=== PATIENT | male | born 1980 | race Caucasian/White ===

== ENCOUNTER → 2019-10-19 | Outpatient (CLI) | payer OTHER ==
[2014-07-10 14:35] VITALS: BP 136/84
--- NOTE | 2019-10-19 15:07 | RAD ---
Examination: FOOT RIGHT 3V History: Fall, pain at the lateral aspect Comparison/Correlation: None Findings: Total of 3 images of the right foot were obtained. Joint spaces are within normal limits. No acute displaced fracture or bony destructive findings. Nonunion distal fibular fracture is evident. Deformity of the distal tibia is notable preserved same previous trauma. Lucency involving the distal tibial diametaphyseal region is noted expansile appearance. Multiple lucencies involving the distal tibia corresponding to previous screw or pin placement noted.. Impression: No evidence of acute fracture. Deformity of distal tibia and fibula. These are presumed posttraumatic and postoperative. Correlate with previous exams available. In particular, expansile appearance of the distal tibial metaphysis is present although may relate to trauma history. No cortical destruction is seen at this site. Electronically signed by: Ponce Sevilla MD (10/19/2019 3:05 PM) [facility]
== END | disposition home or self-care (01) ==
LOC: DXRAD 14:00
PROVIDERS: ATTEND Physician Assistant Medical
DX: S82.831K Other fracture of upper and lower end of right fibula, subsequent encounter for closed fracture with nonunion (principal); X58.XXXD Exposure to other specified factors, subsequent encounter
CPT/HCPCS: 73630

== ENCOUNTER 2020-08-19 19:53 | Emergency (ER) | payer OTHER ==
[~2020-08-19] VITALS: Ht 188 cm; Wt 100.0 kg
[2020-08-19] MEDS ORDERED: ACETAMINOPHEN 325 MG TABLET PO ONE (20:30)
--- NOTE | 2020-08-19 20:33 | PHYS DOC ---
Past History Past Medical History: No Pertinent History Past Surgical History: Other Additional Past Surgical Histo: right ankle surgery x 7, back surgery Alcohol Use: None Drug Use: None Adult General Chief Complaint Chief Complaint: FOOT INJURY PAIN HPI HPI Patient is a 40-year-old male presenting with right lower extremity problem. Patient has history of traumatic fall from roof and numerous orthopedic surgeries to his right lower extremity. He reports having x7 surgeries to his tibia/fibula and ankle region which was complicated with infection. He cites being on long-term antibiotic and having PICC line placed approximately 1 year ago for extended IV antibiotic use at home, he is unsure what bacteria was involved, he is unsure if he has ever suffered from MRSA. Nonetheless, patient was told by prior orthopedic surgeon that if redness/other signs of cellulitis occur to take previously prescribed linezolid 600 mg twice daily and report to nearest ER for evaluation. Patient reports working per usual today and wearing typical work boots when he discovered approximately 2 x 3 well demarcated redness to the ventral portion of his right foot. Over the course of 3 hours, redness, erythema, in pain increased prompting him to take 600 mg linezolid p.o. and present to our ER for evaluation. Patient denies any prodromal symptoms, has not been sick or symptomatic prior to noticing redness on ventral portion of the foot this evening. No recent trauma, no changes in medication, no obvious inoculation or other inciting event. No fever, no COVID-19 contact, no changes in motor and/or sensory function. Review of Systems Review of Systems Fourteen body systems of review of systems have been reviewed. See HPI for pertinent positives and negative responses, other burris all other systems are negative, non-pertinent or non-contributory Allergies Allergies Allergies Coded Allergies Type Severity Reaction Last Updated Verified No Known Drug Allergies 07/10/14 No Physical Exam Physical Exam Constitutional: Well developed, well nourished, no acute distress, non-toxic appearance. HENT: Normocephalic, atraumatic, bilateral external ears normal, oropharynx moist, no oral exudates, nose normal. Eyes: PERRLA, EOMI, conjunctiva normal, no discharge. Neck: Normal range of motion, no tenderness, supple, no stridor. Cardiovascular: Heart rate regular, sinus rhythm, no murmurs rubs or gallops Lungs & Thorax: Bilateral breath sounds clear to auscultation Abdomen: Bowel sounds normal, soft, no tenderness, no masses, no pulsatile masses. Nonsurgical abdomen, no peritoneal signs Skin: Warm, dry, no rash. Well demarcated area concerning for contact dermatitis versus cellulitis of ventral portion of right foot approximately 4 x 6 cm in size, mild involvement to inferior portion of right lateral malleolus. No crepitus, fluctuance, mobile masses concerning for abscess or fluid collection, no elevation in skin or other tactile findings Back: No tenderness, no CVA tenderness. Extremities: No cyanosis, no clubbing, no edema. Range of motion diminished in all planes of right lower extremity which is consistent status post numerous orthopedic surgeries of right lower extremity. Tenderness over skin findings in question noted above without any visual and/or palpable abnormalities Neurologic: Alert and oriented X 3, grossly normal motor & sensory function, no focal deficits noted. Psychologic: Affect normal, judgement normal, anxious mood Current Patient Data Vital Signs Vital Signs Date Time Temp Pulse Resp B/P (MAP) Pulse Ox O2 Delivery O2 Flow Rate FiO2 08/19/20 20:00 98.4 77 16 140/81 (100) 97 Lab Results Laboratory Tests Test 08/19/20 20:25 White Blood Count 8.5 x10^3/uL (4.0-11.0) Red Blood Count 4.90 x10^6/uL (4.30-5.70) Hemoglobin 15.2 g/dL (13.0-17.5) Hematocrit 46.0 % (39.0-53.0) Mean Corpuscular Volume 94 fL (79-100) Mean Corpuscular Hemoglobin 31 pg (25-35) Mean Corpuscular Hemoglobin Concent 33 g/dL (31-37) Red Cell Distribution Width 12.8 % (11.5-14.5) Platelet Count 256 x10^3/uL (140-400) Neutrophils (%) (Auto) 58 % (31-73) Lymphocytes (%) (Auto) 31 % (24-48) Monocytes (%) (Auto) 8 % (0-9) Eosinophils (%) (Auto) 1 % (0-3) Basophils (%) (Auto) 1 % (0-3) Neutrophils # (Auto) 5.0 x10^3uL (1.8-7.7) Lymphocytes # (Auto) 2.7 x10^3/uL (1.0-4.8) Monocytes # (Auto) 0.7 x10^3/uL (0.0-1.1) Eosinophils # (Auto) 0.1 x10^3/uL (0.0-0.7) Basophils # (Auto) 0.1 x10^3/uL (0.0-0.2) Sodium Level 138 mmol/L (136-145) Potassium Level 3.9 mmol/L (3.5-5.1) Chloride Level 103 mmol/L (98-107) Carbon Dioxide Level 26 mmol/L (21-32) Anion Gap 9 (6-14) Blood Urea Nitrogen 16 mg/dL (8-26) Creatinine 1.1 mg/dL (0.7-1.3) Estimated GFR (Cockcroft-Gault) 74.9 BUN/Creatinine Ratio 15 (6-20) Glucose Level 84 mg/dL (70-99) Lactic Acid Level 1.1 mmol/L (0.4-2.0) Calcium Level 9.2 mg/dL (8.5-10.1) Total Bilirubin 0.3 mg/dL (0.2-1.0) Aspartate Amino Transf (AST/SGOT) 17 U/L (15-37) Alanine Aminotransferase (ALT/SGPT) 38 U/L (16-63) Alkaline Phosphatase 81 U/L (46-116) C-Reactive Protein 0.9 mg/L (0-3.3) Total Protein 7.9 g/dL (6.4-8.2) Albumin 4.2 g/dL (3.4-5.0) Albumin/Globulin Ratio 1.1 (1.0-1.7) EKG EKG [] Radiology/Procedures Radiology/Procedures PROCEDURE: FOOT RIGHT 3V Exam: Right ankle 3 views. Right foot 3 views INDICATION: Dorsal foot pain, rule out abscess TECHNIQUE: Frontal, lateral and oblique views of the right foot and right ankle Comparisons: Foot radiographs 10/19/2019 FINDINGS: Foot: Bone mineralization is normal. No acute or healed fractures. Soft tissues are unremarkable. Joint spaces are well-maintained. Ankle: Chronic fracture deformity at the distal tibia and fibula with arthrodesis at the tibiotalar joint. No acute fractures are identified. Soft tissues are unremarkable. IMPRESSION: 1. Chronic changes at the right ankle with arthrodesis of the tibiotalar joint. No acute fractures seen. 2. No acute osseous abnormality at the right foot. Electronically signed by: Adelina Amezcua MD (08/19/2020 8:58 PM) [facility] DICTATED AND SIGNED BY: ADELINA AMEZCUA MD DATE: 08/19/202057 Heart Score Risk Factors: Risk Factors: DM, Current or recent (<one month) smoker, HTN, HLP, family history of CAD, obesity. Risk Scores: Risk Factors: DM, Current or recent (<one month) smoker, HTN, HLP, family history of CAD, obesity. Course & Med Decision Making Course & Med Decision Making Pertinent Labs and Imaging studies reviewed. (See chart for details) I discussed most likely diagnosis of contact dermatitis versus process. 650 mg Tylenol administered in ER with improvement in pain. Throughout course of ER visit, patient's area of concern diminished in size and redness. Because of this, I discussed most likely diagnosis of contact dermatitis versus other transient and likely self-limiting process. With that said, patient is extremely high risk. He has history of numerous surgeries and likely osteomyelitis although patient is not entirely sure of his diagnosis. He reports having good access to primary care physician and orthopedic surgeon, he reports he would feel more comfortable if he continued taking the 600 mg twice daily linezolid until seen in outpatient setting by specialist, I am okay with this given patient's history of infectious pathology to right lower extremity and fact that I do not accurately know his entire past medical history. I advised patient to avoid potential new allergens such as soaps or new socks and change his work boots to his other pair temporarily to ensure symptomatic resolution. Area in question outlined with marker pending for review by primary care physician and specialist at outpatient follow-up. Strict return precautions discussed with good understanding by patient, all questions and concerns addressed prior to ER departure in improved condition Dragon Disclaimer Dragon Disclaimer This electronic medical record was generated, in whole or in part, using a voice recognition dictation system. Departure Departure: Impression: Primary Impression: Skin problem Disposition: 01 DC HOME SELF CARE/HOMELESS Condition: IMPROVED Referrals: SADIE MELTON (PCP) Additional Instructions: As discussed prior to ER departure, please call your primary care physician and orthopedic physician first thing Saturday morning to schedule outpatient follow-up regarding your right lower extremity skin condition As advised by your primary orthopedic and given your high risk for potential cellulitis and worsened complications, I would continue taking your linezolid 600 mg twice daily until further notice I would advise you to avoid work boots as much as possible and new allergens to skin area in question If any concerning signs or symptoms present prior to outpatient follow-up please do not hesitate to come back for repeat examination It was a pleasure to take care of you and I wish you a speedy recovery! AAKASH SHAY DO Aug 19, 2020 20:33
[2020-08-19 20:53] LABS: BASO # 0.1 x10^3/uL (0.0-0.2); BASO % 1 % (0-3); EOS # 0.1 x10^3/uL (0.0-0.7); EOS % 1 % (0-3); HEMOGLOBIN 15.2 g/dL (13.0-17.5); LYMPH # 2.7 x10^3/uL (1.0-4.8); LYMPH % 31 % (24-48); MEAN CORPUSCULAR HEMOGLOBIN 31 pg (25-35); MEAN CORPUSCULAR HGB CONC 33 g/dL (31-37); MEAN CORPUSCULAR VOLUME 94 fL (79-100); MONO # 0.7 x10^3/uL (0.0-1.1); MONO % 8 % (0-9); NEUT % 58 % (31-73); PLATELET COUNT 256 x10^3/uL (140-400); RED CELL DISTRIBUTION WIDTH 12.8 % (11.5-14.5); WHITE BLOOD COUNT 8.5 x10^3/uL (4.0-11.0)
[2020-08-19 20:57] LABS: CALCIUM 9.2 mg/dL (8.5-10.1); CREATININE 1.1 mg/dL (0.7-1.3); GFR 74.9; POTASSIUM 3.9 mmol/L (3.5-5.1)
--- NOTE | 2020-08-19 21:01 | RAD ---
Exam: Right ankle 3 views. Right foot 3 views INDICATION: Dorsal foot pain, rule out abscess TECHNIQUE: Frontal, lateral and oblique views of the right foot and right ankle Comparisons: Foot radiographs 10/19/2019 FINDINGS: Foot: Bone mineralization is normal. No acute or healed fractures. Soft tissues are unremarkable. Joint spaces are well-maintained. Ankle: Chronic fracture deformity at the distal tibia and fibula with arthrodesis at the tibiotalar joint. No acute fractures are identified. Soft tissues are unremarkable. IMPRESSION: 1. Chronic changes at the right ankle with arthrodesis of the tibiotalar joint. No acute fractures seen. 2. No acute osseous abnormality at the right foot. Electronically signed by: Melquiades Burden MD (08/19/2020 8:58 PM) [facility]
[2020-08-19 21:03] LABS: ALBUMIN 4.2 g/dL (3.4-5.0); ALBUMIN/GLOBULIN RATIO 1.1 (1.0-1.7); C REACTIVE PROTEIN 0.9 mg/L (0-3.3); TOTAL BILIRUBIN 0.3 mg/dL (0.2-1.0); TOTAL PROTEIN 7.9 g/dL (6.4-8.2)
[2020-08-19 21:30] VITALS: BP 111/79
== END 2020-08-19 21:30 | disposition home or self-care (01) ==
LOC: ER 19:53
DX: M79.671 Pain in right foot (principal); M25.571 Pain in right ankle and joints of right foot; L53.9 Erythematous condition, unspecified; Z98.890 Other specified postprocedural states
CPT/HCPCS: 36415; 73610; 73630; 80053; 83605; 85025; 86140; 87040; 99284

== ENCOUNTER 2021-01-12 17:43 | Emergency (ER) | payer OTHER ==
[~2021-01-12] VITALS: Ht 188 cm; Wt 93.8 kg
[2021-01-12] MEDS ORDERED: ORPHENADRINE CITRATE 60 MG/2 ML VIAL. IM ONE (18:15)
[2021-01-12] MEDS ORDERED: MUPIROCIN 2% TOPICAL OINTMENT 22GM TUBE. TP ONE (18:15)
[2021-01-12] MEDS ORDERED: HYDROcodone/APAP 5/325MG 1 TAB TABLET PO ONE (18:15)
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
[2021-01-12] MEDS ORDERED: KETOROLAC 30 MG/ML VIAL. IM ONE ×2 (19:45→20:00)
[2021-01-12] MEDS ORDERED: ORPH-16 PO (19:56)
[2021-01-12] MEDS ORDERED: HYDR-2155 PO (19:56)
[2021-01-12 20:00] VITALS: BP 162/94
== END 2021-01-12 20:10 | disposition home or self-care (01) ==
LOC: ER 17:43
DX: S96.912A Strain of unspecified muscle and tendon at ankle and foot level, left foot, initial encounter (principal); S80.11XA Contusion of right lower leg, initial encounter; S60.512A Abrasion of left hand, initial encounter; S40.212A Abrasion of left shoulder, initial encounter; S00.81XA Abrasion of other part of head, initial encounter; V23.9XXA Unspecified motorcycle rider injured in collision with car, pick-up truck or van in traffic accident, initial encounter; Y93.89 Activity, other specified; Y92.89 Other specified places as the place of occurrence of the external cause; Y99.8 Other external cause status
CPT/HCPCS: 70450; 72125; 73030; 73080; 73110; 73590; 96372; 99285; J1885; J2360